=== PATIENT | born 2005 | race African-American/Black ===

== ENCOUNTER 2023-02-12 12:11 | Emergency (ER) | payer OTHER ==
[~2023-02-12] VITALS: Ht 162.6 cm; Wt 108.9 kg
--- OUTSIDE RECORDS SUMMARY | 2023-02-12 12:14 | XMS ---
PreManage Notification: NITA JOSEPH Security Certified Energy Manager Events No recent Security Events currently on file CRITERIA MET - PDMP CARE PROVIDERS -Celso DMD Dentist: Aligning Checker Current PHONE: [phone] Cheng has no Care Guidelines for this patient. E.DFede VISIT COUNT (12 MO.) 1 STEF John TOTAL 1 NOTE: Visits indicate total known visits. ED/UCC VISIT TRACKING (12 MO.) 02/12/2023 12:13 [facility] [place] TYPE: Emergency COMPLAINT: - R EYE PAIN INPATIENT VISIT TRACKING (12 MO.) No inpatient visits to display in this time frame [email or web address]
[2023-02-12] MEDS ORDERED: AMITRIPTYLINE H10 MG PO (12:21)
[2023-02-12] MEDS ORDERED: TESTOSTERO200 MG/1 M IM (12:21)
[2023-02-12] MEDS ORDERED: ERYTHROMYCIN1 GM OP (14:03)
[2023-02-12 14:11] VITALS: BP 136/66
== END 2023-02-12 14:11 | disposition home or self-care (01) ==
LOC: ED 12:11 → EDSEX 12:13 → ED 12:13
DX: S05.01XA Injury of conjunctiva and corneal abrasion without foreign body, right eye, initial encounter (principal); W22.8XXA Striking against or struck by other objects, initial encounter; F41.9 Anxiety disorder, unspecified; Z88.2 Allergy status to sulfonamides; Z79.899 Other long term (current) drug therapy
CPT/HCPCS: 99283